=== PATIENT | female | born 1955 | race Caucasian/White ===

== ENCOUNTER 2021-05-08 00:33 | Emergency (ER) | payer MEDICARE, OTHER ==
[2021-05-08] MEDS ORDERED: Zofran 4 MG/2 ML VIAL IV ONE (01:01)
[2021-05-08] MEDS ORDERED: Zofran 4 MG/2 ML VIAL ONE (01:01)
--- NOTE | 2021-05-08 01:11 | ERPHSYRPT ---
- History of Present Illness Source: patient Exam Limitations: no limitations Patient Subjective Stated Complaint: I got dizzy and vomited at home just before coming in Triage Nursing Assessment: pt states, "I was getting ready to go to bed and got dizzy. I vomited once at home". Pt vomited here at ER as well. Pt states, "I just don't feel good". Pt denies any abd pain or diarrhea but has had alot of gas. Physician History: Pt developed dizziness before going to bed accompanied by nausea/vomiting. Pt has no recent h/o vertigo. She denies focal weakness/otalgia/hearing loss/tinnitus/CROSS/chest pain/dyspnea. Hx of CAD/MS/CVA are denied. Severity: moderate Character of Deficits: other (Dizzy) Deficits: no difficulties, off balance Baseline/Normal Cognition: alert oriented x 3 Current Cognition: alert oriented x 3 Baseline Gait: walks only w/assistance Associated Symptoms: nausea, vomiting, No confusion, No fatigue, No fever, No chills, No loss of consciousness, No weakness, No insomnia, No muscle spasms, No numbness/tingling in legs/feet, No paresthesia, No ringing in ears, No seizures, No slurred speech, No trouble walking, No vision changes, No chest pain, No headache Allergies/Adverse Reactions: cashew nut Adverse Reaction (Mild, Verified 05/08/21 00:55) Rash Home Medications: Simvastatin 10 mg [Zocor 10MG] 1 tab PO HS 05/08/21 [History] Hx Tetanus, Diphtheria Vaccination/Date Given: Yes Hx Influenza Vaccination/Date Given: No Hx Pneumococcal Vaccination/Date Given: Yes Immunizations Up to Date: Yes Travel Risk - International Travel Have you traveled outside of the country in past 3 weeks: No - Coronavirus Screening Are you exhibiting any of the following symptoms?: Yes Symptoms: Vomiting/Diarrhea Close contact with a COVID-19 positive Pt in past 14-21 Days: No - Vaccine Status Have you recieved a Covid-19 vaccination: Yes 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 - Vaccination Dates Date of 2cond Vaccination (if applicable): Dec, 2020 - Review of Systems Constitutional: No Symptoms Eyes: No Symptoms Ears, Nose, & Throat: No Symptoms Respiratory: No Symptoms Cardiac: No Symptoms Abdominal/Gastrointestinal: No Symptoms, Nausea, Vomiting Genitourinary Symptoms: No Symptoms Musculoskeletal: No Symptoms Skin: No Symptoms Neurological: No Symptoms, Dizziness Psychological: No Symptoms Endocrine: No Symptoms Hematologic/Lymphatic: No Symptoms Immunological/Allergic: No Symptoms - Past Medical History Pertinent Past Medical History: Yes Neurological History: No Pertinent History ENT History: No Pertinent History Cardiac History: High Cholesterol, Hypertension Respiratory History: No Pertinent History Endocrine Medical History: No Pertinent History Musculoskeletal History: No Pertinent History GI Medical History: No Pertinent History History: No Pertinent History Psycho-Social History: No Pertinent History Female Reproductive Disorders: No Pertinent History - Past Surgical History Past Surgical History: No Neuro Surgical History: No Pertinent History Cardiac: No Pertinent History Respiratory: No Pertinent History Gastrointestinal: No Pertinent History Genitourinary: No Pertinent History Musculoskeletal: No Pertinent History Female Surgical History: No Pertinent History - Social History Smoking Status: Never smoker Exposure to second hand smoke: No Drug Use: none Patient Lives Alone: Yes Significant Family History: no pertinent family hx - Female History Hx Now: No - Nursing Vital Signs Nursing Vital Signs: Initial Vital Signs Temperature 97.4 F 05/08/21 00:43 Pulse Rate 76 05/08/21 00:43 Respiratory Rate 18 05/08/21 00:43 Blood Pressure 141/73 05/08/21 00:43 O2 Sat by Pulse Oximetry 96 05/08/21 00:43 Pain Scale Pain Intensity 0 Hypertension - [place] Coma Scale Best Eye Response (Jeanie): (4) open spontaneously Best Verbal Response ([place]): (5) oriented Best Motor Response ([place]): (6) obeys commands Jeanie Total: 15 - Physical Exam General Appearance: no apparent distress Eye Exam: bilateral eye: normal inspection, PERRL, EOMI Ears, Nose, Throat Exam: normal ENT inspection, TMs normal, pharynx normal, moist mucous membranes Neck Exam: normal inspection, non-tender, supple, full range of motion, No meningismus, No mass, No Brudzinski, No Kernig's, No carotid bruit Respiratory: normal breath sounds, lungs clear, airway intact, No respiratory d istress Cardiovascular: regular rate/rhythm, normal heart sounds, normal peripheral pulses, No murmur Gastrointestinal: soft, normal bowel sounds, No tenderness Back Exam: normal inspection, normal range of motion, No CVA tenderness Extremity Exam: normal inspection, normal range of motion Peripheral Pulses: carotid (R): 2+, carotid (L): 2+ Mental Status: alert, oriented x 3, cooperative facility maintenance helper Exam: normal hearing, normal speech, PERRL, No abnormal eye position, No abnormal gag reflex Motor/Sensory: no motor deficit, no sensory deficit, no pronator drift, negative Babinski's sign DTR: bicep (R): 2+, bicep (L): 2+, knee (R): 2+, knee (L): 2+ Skin Exam: normal color, warm, dry SpO2 Interpretation: normal SpO2: 96 O2 Delivery: Room Air - Course EKG Interpreted by Me: RATE (NSR/R67/Prolonged QTc/No acute ST-Twave changes) - CT Exams Head CT Interpretation: Tele-radiologist Report (Ct head-no acute intra-cranial lesion/calcified lesion deep to L mandible) Ordered Tests: Active Orders 24 hr Category Date Time Status EKG-ER Only STAT Care 05/08/21 00:[address] ANGIOGRAPHY NECK [CT] Stat Exams 05/08/21 01:55 Taken CTA HEAD W AND/OR WO CONTRAST [CT] Stat Exams 05/08/21 01:14 Taken HEAD WITHOUT CONTRAST [CT] Stat Exams 05/08/21 01:55 Taken CBC W DIFF Stat Lab 05/08/21 01:10 Completed CMP Stat Lab 05/08/21 01:10 Completed PROTIME WITH INR Stat Lab 05/08/21 01:10 Completed PTT Stat Lab 05/08/21 01:10 Completed TROPONIN Q3H Lab 05/08/21 01:10 Completed Medication Summary Discontinued Medications Generic Name Dose Route Start Last Admin Trade Name Autumn PRN Reason Stop Dose Admin Ondansetron HCl 4 mg 05/08/21 01:01 05/08/21 01:04 Zofran 4 Mg/2 Ml Vial IV 05/08/21 01:02 4 mg STAT ONE Administration Ondansetron HCl Confirm 05/08/21 01:01 Zofran 4 Mg/2 Ml Vial Administered 05/08/21 01:02 Dose 4 mg .ROUTE .STK-MED ONE Lab/Rad Data: Laboratory Result Diagrams 05/08/21 01:10 05/08/21 01:10 Laboratory Results 05/08/21 05/08/21 05/08/21 Range/Units 01:10 01:10 01:10 WBC (4.0-10.5) K/mm3 RBC (4.1-5.4) M/mm3 Hgb (12.0-16.0) gm/dl Hct (35-47) % MCV (78-100) fl MCH (26-32) pg MCHC (32-36) g/dl RDW (11.5-14.0) % Plt Count (150-450) K/mm3 MPV (7.5-11.0) fl Gran % (36.0-66.0) % Eos # (Auto) (0-0.5) Absolute Lymphs (auto) (1.0-4.6) Absolute Monos (auto) (0.0-1.3) Lymphocytes % (24.0-44.0) % Monocytes % (0.0-12.0) % Eosinophils % (0.00-5.0) % Basophils % (0.0-0.4) % Absolute Granulocytes (1.4-6.9) Basophils # (0-0.4) PT 10.7 (9.4-12.5) SECONDS INR 0.91 (0.8-3.0) APTT 30.0 (25.1-36.5) SECONDS Sodium 137 (137-145) mmol/L Potassium 4.4 (3.5-5.1) mmol/L Chloride 102 (98-107) mmol/L Carbon Dioxide 27 (22-30) mmol/L Anion Gap 12.6 (5-15) MEQ/L BUN 23 H (7-17) mg/dL Creatinine 0.88 (0.52-1.04) mg/dL Estimated GFR > 60.0 ML/MIN Glucose 127 H (74-106) mg/dL Calcium 9.4 (8.4-10.2) mg/dL Total Bilirubin 0.50 (0.2-1.3) mg/dL AST 27 (14-36) U/L ALT 19 (0-35) U/L Alkaline Phosphatase 72 (38-126) U/L Troponin I < 0.012 (0.000-0.034) ng/mL Serum Total Protein 6.9 (6.3-8.2) g/dL Albumin 4.2 (3.5-5.0) g/dL 09/14/21 Range/Units 01:10 WBC 9.0 (4.0-10.5) K/mm3 RBC 3.90 L (4.1-5.4) M/mm3 Hgb 12.0 (12.0-16.0) gm/dl Hct 37.7 (35-47) % MCV 96.7 (78-100) fl MCH 30.8 (26-32) pg MCHC 31.8 L (32-36) g/dl RDW 13.6 (11.5-14.0) % Plt Count 268 (150-450) K/mm3 MPV 9.4 (7.5-11.0) fl Gran % 71.0 H (36.0-66.0) % Eos # (Auto) 0.16 (0-0.5) Absolute Lymphs (auto) 1.87 (1.0-4.6) Absolute Monos (auto) 0.55 (0.0-1.3) Lymphocytes % 20.7 L (24.0-44.0) % Monocytes % 6.1 (0.0-12.0) % Eosinophils % 1.8 (0.00-5.0) % Basophils % 0.4 (0.0-0.4) % Absolute Granulocytes 6.41 (1.4-6.9) Basophils # 0.04 (0-0.4) PT (9.4-12.5) SECONDS INR (0.8-3.0) APTT (25.1-36.5) SECONDS Sodium (137-145) mmol/L Potassium (3.5-5.1) mmol/L Chloride (98-107) mmol/L Carbon Dioxide (22-30) mmol/L Anion Gap (5-15) MEQ/L BUN (7-17) mg/dL Creatinine (0.52-1.04) mg/dL Estimated GFR ML/MIN Glucose (74-106) mg/dL Calcium (8.4-10.2) mg/dL Total Bilirubin (0.2-1.3) mg/dL AST (14-36) U/L ALT (0-35) U/L Alkaline Phosphatase (38-126) U/L Troponin I (0.000-0.034) ng/mL Serum Total Protein (6.3-8.2) g/dL Albumin (3.5-5.0) g/dL - Progress Progress Note: 05/08/21 03:59 CTA of neck-Hypoplastic R vertebral artery per [facility] CTA of Head-R carotid artery siphon calcification 70-80%/L Carotid artery siphon calcification 70% Pt greatly improved w 4mg IV Zofran Counseled pt/family regarding: lab results, diagnosis, need for follow-up, rad results - Departure Departure Disposition: Home Clinical Impression: Vertigo Condition: Stable Critical Care Time: No Referrals: DARIUS VALLE NP [Primary Care Provider] - Instructions: Vertigo (a Type of Dizziness) (DC) Additional Instructions: Follow up with family MD in 1-2 days Zofran as needed for nausea/vomiting Return to ER for headache/focal weakness/worsening dizziness Take a 81mg aspirin once a day Prescriptions: Ondansetron ODT 4 MG [Zofran Odt 4 mg] 4 mg PO Q6H PRN PRN #10 PRN Reason: Nausea/Vomiting
[2021-05-08 01:17] LABS: Absolute Neutrophil Ct (ANC) 6.41 (1.4-6.9); BASOPHIL % 0.4 % (0.0-0.4); Basophil (Absolute #) 0.04 (0-0.4); Eosinophil % 1.8 % (0.00-5.0); Eosinophil (Absolute #) 0.16 (0-0.5); Hematocrit 37.7 % (35-47); Lymphocyte (Absolute #) 1.87 (1.0-4.6); Lymphocytes % 20.7 % (24.0-44.0); Mean Cell Volume 96.7 fl (78-100); Mean Corpuscular Hemoglobin 30.8 pg (26-32); Mean Corpuscular Hgb Concent. 31.8 g/dl (32-36); Mean Platelet Volume 9.4 fl (7.5-11.0); Monocyte (Absolute #) 0.55 (0.0-1.3); Monocytes % 6.1 % (0.0-12.0); Platelet Count 268 K/mm3 (150-450); Red Cell Distribution Width 13.6 % (11.5-14.0)
[2021-05-08 01:26] LABS: INR 0.91 (0.8-3.0); PROTIME 10.7 SECONDS (9.4-12.5)
[2021-05-08 01:37] LABS: ALBUMIN 4.2 g/dL (3.5-5.0); ALKALINE PHOSPHATASE 72 U/L (38-126); ANION GAP 12.6 MEQ/L (5-15); BLOOD UREA NITROGEN 23 mg/dL (7-17); CHLORIDE 102 mmol/L (98-107); Calcium 9.4 mg/dL (8.4-10.2); Carbon Dioxide 27 mmol/L (22-30); Creatinine 1 0.88 mg/dL (0.52-1.04); EST GLOMERULAR FILTRATION RATE > 60.0 ML/MIN; Glucose 127 mg/dL (74-106); Potassium 4.4 mmol/L (3.5-5.1); SGOT/AST 27 U/L (14-36); SGPT/ALT 19 U/L (0-35); SODIUM 137 mmol/L (137-145); Total Protein 6.9 g/dL (6.3-8.2)
[2021-05-08 04:19] VITALS: BP 116/70; PULSE 76
[2021-05-08 05:46] VITALS: O2SAT 96
--- NOTE | 2021-05-08 08:53 | XRAY ---
Indication: Dizziness. Multiple contiguous axial images obtained through the head without contrast. Comparison: None. Age-appropriate global atrophy. No acute intracranial hemorrhage, abnormal extra-axial fluid collection, or mass effect. Fourth ventricle is midline without hydrocephalus. Kaur-white matter differentiation preserved. Bony calvarium intact. Visualized paranasal sinuses and mastoid air cells are clear. Incidental 1.6 x 1.2 x 1.4 cm partially calcified nodule in the deep left mandibular space, cystic versus necrotic lesion. Impression: 1. Negative CT head without contrast exam. 2. Incidental benign appearing partially calcified nodule deep left mandibular space. Comment: Preliminary interpretation made by [facility]. No critical discrepancy.
--- NOTE | 2021-05-08 08:57 | XRAY ---
Indication: Dizziness. Conventional contrast enhanced CTA neck performed using 80 cc Isovue 370 contrast. Two-dimensional sagittal and coronal reformatted images obtained. Additional 3-dimensional reformatted images obtained using a separate workstation. Comparison: None. Visualized aortic arch is normal in course and caliber without arteriosclerotic disease. Normal branching right brachiocephalic, left common carotid, and left subclavian arteries. Very minimal calcifications at origin left subclavian artery. Left and right carotid circulation demonstrates normal CTA appearance to the common carotid, carotid bulb, internal carotid, and external carotid arteries. Vertebral arteries are widely patent bilaterally with the left slightly larger in caliber. No AV malformation. Visualized soft tissues demonstrates a 1.6 x 1.2 x 1.4 cm partially calcified nodule deep in the left mandibular space, cystic versus necrotic lesion. A few subcentimeter cervical/submandibular lymph nodes bilaterally. Parotid and submandibular glands are bilaterally symmetric. Supra and infraglottic airway widely patent. Cervical spine intact with mild C5-C7 degenerative changes. Lung apices demonstrates minimal dependent atelectasis. Impression: 1. Normal CTA neck. 2. Incidental benign appearing partially calcified nodule deep left mandibular space. Comment: Preliminary interpretation made by [facility]. No critical discrepancy.
--- NOTE | 2021-05-08 09:02 | XRAY ---
Indication: Dizziness. Conventional contrast enhanced CTA head performed using 80 cc Isovue 370 contrast. Two-dimensional sagittal and coronal reformatted images obtained. Additional 3-dimensional reformatted images obtained using a separate workstation. Comparison: None. Distal internal carotid arteries are bilaterally symmetric with minimal arteriosclerotic calcifications involving the parasellar segments. No critical stenosis, dissection, or AV malformation. Normal carotid terminus with normal branching left anterior cerebral and left/right middle cerebral arteries. 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 More distal anterior cerebral, anterior communicating, middle cerebral, and posterior to indicating arteries are normal in CTA appearance. Posterior circulation demonstrates normal CTA appearance the basilar artery, left/right posterior cerebral, and left/right superior cerebellar arteries. Venous system unremarkable. No abnormal enhancing intra/extra-axial mass. Impression: 1. Minimal arteriosclerotic calcifications involving both parasellar segments internal carotid arteries without critical stenosis/obstruction. 2. Aplastic right A1 segment. More distal right anterior cerebral artery supplied via patent anterior communicating artery. 3. Remaining CTA head is normal. Comment: Preliminary interpretation made by [facility]. No critical discrepancy.
== END 2021-05-08 04:19 | disposition home or self-care (01) ==
LOC: ED 00:33
DX: R42 Dizziness and giddiness (principal); R11.2 Nausea with vomiting, unspecified; E78.00 Pure hypercholesterolemia, unspecified; I10 Essential (primary) hypertension; Z79.899 Other long term (current) drug therapy
CPT/HCPCS: 36415; 70450; 70496; 70498; 80053; 84484; 85025; 85610; 85730; 93005; 96374; 99284; J2405